=== PATIENT | female | born 1985 | race Caucasian/White ===

== ENCOUNTER 2020-10-14 07:46 | Emergency (ER) | payer BC, OTHER ==
[~2020-10-14 07:46] MED LIST: PROTONIX40 MG PO; US Gall Bladder
[2020-10-14] MEDS ORDERED: PERCOCET 5-3251 EACH PO (09:39)
[2020-10-14] MEDS ORDERED: CYCLOBENZAPRINE10 MG PO (09:39)
[2020-10-14] MEDS ORDERED: PREDNISONE20 MG PO (09:39)
== END 2020-10-14 10:05 | disposition home or self-care (01) ==
LOC: ER1 07:46
DX: M54.42 Lumbago with sciatica, left side (principal); M47.817 Spondylosis without myelopathy or radiculopathy, lumbosacral region
CPT/HCPCS: 72110; 99283; J1885; J2405